=== PATIENT | female | born 1975 | race Caucasian/White ===

== ENCOUNTER → 2016-11-26 | Outpatient (CLI) | payer BC ==
[~2016-11-26] MED LIST: ALPR-411 PO; BCPILLS PO; CRAN1CAP15 PO; ESCI10TA17 PO; MULT-506 PO; OMEG10007 PO
== END ==
LOC: C.PAPS 11:01
PROVIDERS: ATTEND Obstetrics & Gynecology
DX: Z01.411 Encounter for gynecological examination (general) (routine) with abnormal findings (principal)